=== PATIENT | female | born 1995 | race Caucasian/White ===

== ENCOUNTER 2020-11-20 00:01 | Inpatient (IN) ==
[2020-11-20] MEDS ORDERED: MISOPROSTOL 100 MCG TABLET VG PRN (00:03)
[2020-11-20] MEDS ORDERED: OXYTOCIN/0.9 % SODIUM CHLORIDE 30 UNITS/500 ML BAG IV ONE ×2 (00:03→11:41)
[2020-11-20] MEDS ORDERED: ONDANSETRON 4 MG TAB.RAPDIS PO PRN (00:03)
[2020-11-20] MEDS ORDERED: RINGER'S SOLUTION,LACTATED 1,000 ML IV ONE (00:03)
[2020-11-20] MEDS ORDERED: LIDOCAINE HCL 50 ML VIAL PERI PRN (00:03)
[2020-11-20] MEDS ORDERED: BUTORPHANOL TARTRATE 2 MG/ML VIAL IV PRN (00:03)
[2020-11-20 00:44] LABS: Cocaine Ur Negative (NEGATIVE); Urine Barbiturate Negative (NEGATIVE); Urine Benzodiazepines Negative (NEGATIVE); Urine PCP Negative (NEGATIVE); Urine THC Negative (NEGATIVE)
[2020-11-20] MEDS: RINGER'S SOLUTION,LACTATED 1,000 ML IV PRN ×2 (00:49→06:38)
[2020-11-20 00:54] LABS: Urine Opiates Positive (NEGATIVE)
[2020-11-20] MEDS: BUTORPHANOL TARTRATE 2 MG/ML VIAL IV PRN ×2 (02:59→05:31)
[2020-11-20] MEDS ORDERED: ONDANSETRON HCL/PF 2 MG/ML VIAL IV PRN (05:52)
[2020-11-20] MEDS ORDERED: BUPIVACAINE HCL/0.9 % NACL/PF 250 ML EP PRN (05:52)
[2020-11-20] MEDS ORDERED: NALOXONE HCL 1 MG/1 ML SYRG IV PRN (05:52)
[2020-11-20] MEDS ORDERED: fentaNYL CITRATE/PF 50 MCG/ML AMPUL IT SCH (06:00)
--- NOTE | 2020-11-20 07:13 | ANES ---
Anesthesia Pre Procedure Eval Vitals/Labs: Last Vital Signs Temp 36.6 C 11/20/20 00:24 Pulse 116 H 11/20/20 00:24 Resp 18 11/20/20 00:24 BP 137/86 11/20/20 00:24 Pulse Ox 97 11/20/20 00:24 HOME MEDICATIONS cyclobenzaprine 10 mg tablet 10 mg PO BID PRN #10 tab 10/05/20 [Last Taken 11/18/20 21:00] Allergies/Adverse Reactions: Allergies Allergy/AdvReac Type Severity Reaction Status Date / Time No Known Allergies Allergy Verified 11/20/20 00:03 - Planned Procedure Planned Procedure: elective induction Medication List Reviewed:: Yes Allergies Verified: Yes Medical History (Last Reviewed 11/20/20 @ 06:36 by Rocky Houser CRNA) Asthma Chronic bronchitis Surgical History (Last Reviewed 11/20/20 @ 06:36 by Rocky Houser CRNA) No pertinent past surgical history Family History (Last Reviewed 11/20/20 @ 06:37 by Rocky Houser CRNA) Grandfather Heart disease Other Cancer - Family Anesthesia History Family History:: no untoward family reactions to anesthesia, no familial bleeding tendencies, no family history of clotting disorders, no family history of premature - Airway/Neck/Teeth Within Normal Limits:: Yes Teeth Condition: intact Mallampatti Score: 2 Thyromental (T-M) distance: > 6 cm Mandibulo Hyoid distance: > 3 cm - Respiratory Respiratory Physical: rhonchi Sleep Apnea currently treated: No Sleep Apnea by current assessment: No - Cardiovascular Tolerate Activity: Fair Heart Sounds: S1 & S2, Regular - Gastrointestinal NPO since: 2399 - Anesthesia Assessment and Plan ASA Class: PS, III, E Anesthesia Type Plan: Epidural - CSE for labor analgesia
--- NOTE | 2020-11-20 07:14 | ANES ---
Post Anesthesia Discharge - Transfer of Care Transfer of Care handoff given to nurse: Yes - Discharge from PACU Discharge from PACU when meets criteria: Yes - Comfortable post CSE.
--- NOTE | 2020-11-20 07:19 | ANES ---
Anesthesia Procedure Note Procedure Note: ANESTHESIA PROCEDURE NOTE Date of Procedure: 11/20/2020 Time of procedure: 6:35 AM. Performed by: SHANNON Marcum CRNA, MSN Hire Car Driver: Donna Villanueva RN. Preprocedure diagnosis: Active labor, labor pain. Post procedure diagnosis: Same. Procedure:Epidural for labor analgesia L3-4. Indications: Labor pain. Findings: See below. Details of the procedure: The patient was placed on the side of the bed in sitting positionand prepped with DuraPrep then draped in a sterile fashion. Lidocaine 1% was infiltrated to the skin and subcutaneous tissues at the level of the L3-4 interspace. An 18-gauge Touhy needle was used to approach the epidural space with loss of resistance technique. There was some difficulty finding the epidural space, the target was more left lateral and would be expected by visualization. Once loss of resistance was achieved a 27-gauge spinal needle was passed through the epidural needle and CSF was contacted. After CSF returned, 20 mcg of fentanyl was injected in the spinal needle was removed the epidural catheter was then threaded approximately 4 cm in the epidural needle was removed. The catheter was taped in place and after careful aspiration 3 mL of 1.5% lidocaine with 1-200,000 epinephrine was injected without change in maternal heart rate or sensorium. . EBL: Minimal. Fluids: N/A. Specimen: N/A. Post procedure condition: The patient tolerated the procedure well with good relief. No complications were noted. Thank you for this consultation. Rocky Houser CRNA, ARNP, MSN
--- NOTE | 2020-11-20 07:26 | ANES ---
Post Anesthesia Assessment - Vital Signs Vitals: Last Vital Signs Temp 36.6 C 11/20/20 00:24 Pulse 116 H 11/20/20 00:24 Resp 18 11/20/20 00:24 BP 137/86 11/20/20 00:24 Pulse Ox 97 11/20/20 00:24 Airway Patency: Normal - Mental Status Level Of Consciousness: Awake, Alert, Appropriate - Pain Level Pain Score: 0 - N/V Assessment Nausea/Vomiting Presence: None Dehydration:: No
--- NOTE | 2020-11-20 07:39 | HP ---
Chief Complaint - Chief Complaint Date of Service: 11/20/20 Time of Service: 07:25 Chief Complaint: elective induction History of Present Illness: 25 year old at 39w 0d who presented to L&D for an elective IOL. She reports regular ctx on pitocin. She denies LOF or VB. Fetus is active. Medical History (Last Reviewed 11/20/20 @ 07:33 by Billie Elkins MD) Asthma Chronic bronchitis Surgical History: Surgical History (Last Reviewed 11/20/20 @ 07:33 by Billie Elkins MD) No pertinent past surgical history Family History: Family History (Last Reviewed 11/20/20 @ 07:33 by Billie Elkins MD) Grandfather Heart disease Other Cancer Social History: (Last Reviewed 11/20/20 @ 07:33 by Billie Elkins MD) Social History: adopted: No Marital status: Single current occupational status: unemployed current occupational exposures/hazards: No Highest level of school completed/degree received: 9th grade Service: No Tobacco: Smoking Status: Former smoker Alcohol: alcohol intake: never details: none since +UPT Substance Use: substance use type: does not use Dietary Habits: caffeine: No Personal Safety: do you feel safe at home: Yes victim of physical abuse: No victim of emotional abuse: No victim of sexual abuse: No Review Of Systems (GEN) - Review of Systems Generalized/Overall Review: Present: No Symptoms Reported EENTM: Present: No Symptoms Reported Misc: All systems neg except as marked Immunizations: IMMUNIZATION HX Immunizations Up to Date Yes History of Influenza Vaccine No Hx Pneumococcal Vaccination No Allergies/Adverse Reactions: Allergies Allergy/AdvReac Type Severity Reaction Status Date / Time No Known Allergies Allergy Verified 11/20/20 00:03 Home Medications: HOME MEDICATIONS cyclobenzaprine 10 mg tablet 10 mg PO BID PRN #10 tab 10/05/20 [Last Taken 11/18/20 21:00] Exam - Exam Vital Signs: Vital Signs - Last Taken Temp 36.6 C 11/20/20 00:24 Pulse 116 H 11/20/20 00:24 Resp 18 11/20/20 00:24 BP 137/86 11/20/20 00:24 Pulse Ox 97 11/20/20 00:24 Constitutional: Present: Alert, Oriented x3, Cooperative, No distress ENT Exam: Present: hearing grossly normal Eye Exam: bilateral eye: normal inspection Neck: Present: normal inspection Back Exam: Present: normal inspection Breasts: Present: Exam deferred Respiratory: Present: lungs clear, normal breath sounds Cardiovascular/Chest: Present: regular rate, rhythm Abdomen: Present: soft, nontender, nondistended /Rectal: Present: Other - 4/50/-2 AROM for a moderate amount of clear fluid Extremity: Present: non-tender, no calf tenderness Skin Exam: Present: normal color, warm/dry, no cyanosis Neurologic: Present: alert, normal mood/affect, oriented x 3 Appearance: Present: appropriate appearance, appropriate insight, neat, no memory impairment Eye contact: Present: cooperative, good eye contact, normal speech Thoughts: Present: normal thought pattern Diagnostic Studies: Abnormal Lab Results 11/20/20 Range/Units 00:01 Urine Opiates Screen Positive H (NEGATIVE) Laboratory Results Urine Opiates Screen Positive (NEGATIVE) H 11/20/20 00:01 Barbiturate Screen Negative (NEGATIVE) 11/20/20 00:01 Ur Phencyclidine Scrn Negative (NEGATIVE) 11/20/20 00:01 Urine Amphetamine Negative (NEGATIVE) 11/20/20 00:01 U Benzodiazepines Scrn Negative (NEGATIVE) 11/20/20 00:01 Urine Cocaine Screen Negative (NEGATIVE) 11/20/20 00:01 Urine Marijuana (THC) Negative (NEGATIVE) 11/20/20 00:01 Blood Type O Positive 11/20/20 00:15 Antibody Screen Negative 11/20/20 00:15 Assessment/Plan - Narrative Narrative: 25 year old at 39w 0d 1. Elective IOL: On pitocin, AROM done for augmentation 2. Opiate use disorder: UDS positive on admission to L&D 3. GBS negative: prophylaxis not indicated - Assessment/Plan (1) Elective induction of labor planned Problem: Acute (2) 39 weeks gestation of Problem: Acute (3) Opiate use Problem: Acute (4) Rh(D) positive Problem: Acute (5) Anemia Problem: Acute Qualifiers: Anemia type: iron deficiency Iron deficiency anemia type: other iron deficiency Qualified Code(s): D50.8 - Other iron deficiency anemias (6) LGSIL (low grade squamous intraepithelial dysplasia) Problem: Acute (7) History of marijuana use Problem: Acute
--- NOTE | 2020-11-20 11:24 | OR ---
Operative Report - Dictated Report Narrative: Date of delivery: 11/21/20 Time of delivery: 1150 Gender: female weight: 2602 grams APGARS: 8/9 Procedure: Description of the procedure: The patient is a 25 year old at 39w 0d who presented for an elective IOL. She received pitocin followed by AROM. She p rogressed to complete dilation. The patient delivered a viable female infant in ERLIN presentation. The shoulders delivered without difficulty followed by the rest of the infant. Cord clamping was delayed for 30 seconds due to vigorous infant. The cord was clamped and cut. Cord blood was collected. The placenta delivered by expression and appeared intact. The cervix was visualized at the perineum. A 2 cm transverse superficial laceration of the anterior lip of the cervix was noted. Only the serosal area was noted to be affected. This was repaired with 3-0 rapide. EBL: 150 mL Lacerations: 2 cm transverse cervical laceration of the anterior lip of the cervix Complications: none Specimens: cord blood, cord gases, placenta History for Definition: * The number of deliveries resulting in a live the patient experienced prior to current hospitalization * The previous delivery of live twins or any live multiple gestation is considered one live event. *If primagravida or nulliparous is documented select zero for the number of previous live births. Live Events: 3
[2020-11-20] MEDS ORDERED: HYDROcodone/ACETAMINOPHEN 1 EACH TABLET PO PRN (11:41)
[2020-11-20] MEDS ORDERED: BENZOCAINE/MENTHOL 81 SPRAY CAN TP PRN (11:41)
[2020-11-20] MEDS ORDERED: HYDROCORTISONE 30 APPL TUBE TP PRN (11:41)
[2020-11-20] MEDS ORDERED: diphenhydrAMINE HCL 25 MG CAPSULE PO PRN (11:41)
[2020-11-20] MEDS ORDERED: GLYCERIN/WITCH HAZEL LEAF 40 APPL BOX TP PRN (11:41)
[2020-11-20] MEDS ORDERED: SENNOSIDES 8.6 MG TABLET PO PRN (11:41)
[2020-11-20] MEDS ORDERED: BISACODYL 10 MG SUPP.RECT RC PRN (11:41)
[2020-11-20] MEDS: HYDROcodone/ACETAMINOPHEN 1 EACH TABLET PO PRN ×3 (12:20→18:43)
[2020-11-20] MEDS: IBUPROFEN 800 MG TABLET PO PRN ×2 (12:21→18:43)
[2020-11-20] MEDS: DOCUSATE SODIUM 100 MG CAPSULE PO SCH (22:05)
[2020-11-20] MEDS: oxyCODONE HCL/ACETAMINOPHEN 1 TAB TABLET PO PRN (22:05)
[2020-11-21] MEDS: IBUPROFEN 800 MG TABLET PO PRN ×4 (01:17→21:57)
[2020-11-21] MEDS: oxyCODONE HCL/ACETAMINOPHEN 1 TAB TABLET PO PRN ×7 (01:18→23:35)
[2020-11-21] MEDS: DOCUSATE SODIUM 100 MG CAPSULE PO SCH ×3 (07:21→21:56)
--- NOTE | 2020-11-21 07:28 | PN ---
Subjective - Date and Time Seen Date: 11/21/20 Time: 07:26 Subjective Narrative: Patient without complaints. Bleeding is normal Objective Objective Narrative: See vital signs - Review of Systems Generalized/Overall Review: Reports: No Symptoms Reported Misc: All systems neg except as marked - Vitals Vitals: Last Vital Signs Temp 36.4 C 11/21/20 06:30 Pulse 84 11/21/20 06:30 Resp 20 11/21/20 06:30 BP 114/70 11/21/20 06:30 Pulse Ox 98 11/21/20 06:30 - Exam Constitutional: Present: Alert, Oriented x3, Cooperative, No distress ENT Exam: Present: hearing grossly normal Neck: Present: normal inspection Abdomen: Present: soft, nontender, nondistended - fundus is firm Extremity: Present: non-tender, no calf tenderness Skin Exam: Present: normal color, warm/dry, no cyanosis Neurologic: Present: alert, normal mood/affect, oriented x 3 Appearance: Present: appropriate appearance, appropriate insight, neat, no memory impairment Eye contact: Present: cooperative, good eye contact, normal speech Thoughts: Present: normal thought pattern Cauti Physician Documentation - Urinary Catheter Management Urethral ([place]) Urethral Indwelling: No Date of Insertion: 11/20/20 Time of Insertion: 07:40 Date of Removal: 11/20/20 Time of Removal: 10:50 Assessment/Plan Plan Narrative: PPD 1 s/p Doing well Discharge tomorrow - Problems/Diagnosis (1) Elective induction of labor planned Problem: Acute (2) 39 weeks gestation of Problem: Acute (3) Opiate use Problem: Acute (4) Rh(D) positive Problem: Acute (5) Anemia Problem: Acute Qualifiers: Anemia type: iron deficiency Iron deficiency anemia type: other iron deficiency Qualified Code(s): D50.8 - Other iron deficiency anemias (6) LGSIL (low grade squamous intraepithelial dysplasia) Problem: Acute (7) History of marijuana use Problem: Acute
[2020-11-21] MEDS ORDERED: MEDROXYPROGESTERONE ACET 150 MG/ML SYRG IM ONE ×2 (08:00→17:35)
[2020-11-22] MEDS: oxyCODONE HCL/ACETAMINOPHEN 1 TAB TABLET PO PRN (02:54)
[2020-11-22] MEDS: IBUPROFEN 800 MG TABLET PO PRN ×2 (05:32→11:36)
[2020-11-22 07:40] VITALS: BP 114/57
[2020-11-22] MEDS: DOCUSATE SODIUM 100 MG CAPSULE PO SCH (09:53)
--- NOTE | 2020-11-22 11:37 | PN ---
Subjective - Date and Time Seen Date: 11/22/20 Time: 11:35 Subjective Narrative: Patient without complaints. Bleeding is normal Objective Objective Narrative: See vital signs - Review of Systems Generalized/Overall Review: Reports: No Symptoms Reported Misc: All systems neg except as marked - Vitals Vitals: Last Vital Signs Temp 36.5 C 11/22/20 07:39 Pulse 98 11/22/20 07:39 Resp 16 11/22/20 07:39 BP 114/57 11/22/20 07:39 Pulse Ox 98 11/22/20 07:39 - Exam Constitutional: Present: Alert, Oriented x3, Cooperative, No distress Abdomen: Present: soft, nontender, nondistended - fundus is firm Extremity: Present: non-tender, no calf tenderness Skin Exam: Present: normal color, warm/dry, no cyanosis Neurologic: Present: alert, normal mood/affect, oriented x 3 Appearance: Present: appropriate appearance, appropriate insight, neat, no memory impairment Eye contact: Present: cooperative, good eye contact, normal speech Thoughts: Present: normal thought pattern Cauti Physician Documentation - Urinary Catheter Management Urethral ([place]) Urethral Indwelling: No Date of Insertion: 11/20/20 Time of Insertion: 07:40 Date of Removal: 11/20/20 Time of Removal: 10:50 Assessment/Plan Plan Narrative: PPD 2 s/p Doing well Discharge home - Problems/Diagnosis (1) Elective induction of labor planned Problem: Acute (2) 39 weeks gestation of Problem: Acute (3) Opiate use Problem: Acute (4) Rh(D) positive Problem: Acute (5) Anemia Problem: Acute Qualifiers: Anemia type: iron deficiency Iron deficiency anemia type: other iron deficiency Qualified Code(s): D50.8 - Other iron deficiency anemias (6) LGSIL (low grade squamous intraepithelial dysplasia) Problem: Acute (7) History of marijuana use Problem: Acute
--- NOTE | 2020-11-23 08:11 | DS ---
OB Discharge Summary (1) Elective induction of labor planned Status: Acute (2) 39 weeks gestation of Status: Acute (3) Opiate use Status: Acute (4) Rh(D) positive Status: Acute (5) Anemia Status: Acute Qualifiers: Anemia type: iron deficiency Iron deficiency anemia type: other iron deficiency Qualified Code(s): D50.8 - Other iron deficiency anemias (6) LGSIL (low grade squamous intraepithelial dysplasia) Status: Acute (7) History of marijuana use Status: Acute Delivery Date: 11/20/20 Delivery Time: 10:49 :: 8 Para:: 5 Gestational weeks:: 39 Gestational days:: 0 Intrapartum Procedures: Spontaneous Vaginal Delivery, Anesthesia - Epidural Procedures: None /OP Complications: No Complications Discharge Diagnosis: Term -Delivered, Other - opiate use disorder - Discharge Information Date of Discharge: 11/23/20 Hospital Course: The patient presented for an elective IOL and delivered vaginally without complications. course was uncomplicated. Discharge Location: Home Disposition: Home self-care Condition: Stable Activity on Discharge:: Activity as tolerated, Pelvic Rest Discharge Diet: General/regular food Additional Patient Instructions (free text): Jennifer you have an appointment with Dr. Elkins on SundayJanuary 03 at 3:00PM Hiwot has an appointment with [facility] at 1:15 on November 24 Hiwot's weight today is 5lbs 9.9oz. Her blood type is O+. Her bili level at 41 hours of life is 7.6. She has passed her hearing screen, passed her CHD screen, and her metabolic screen has been drawn. Please contiune to feed Hiwot on demand or at least every 3-4 hours. Please always lay her on her back in her own sleeping space with no loose blankets or others objects in her sleeping space. Thank you for choosing [facility] for your special delivery. Please never hesitate to call if you have any questions or concerns. [facility] [phone] [facility] [phone] [facility] [phone] Prescriptions (Any new or edited meds): Ibuprofen [Motrin] 800 mg PO Q6H PRN #30 tab PRN Reason: Mild Pain (Pain Scale 1-3) Transmission Status: Received by [facility] #[id number] Complete Home Medications List: Complete Home Medication List: Ibuprofen [Motrin] 800 mg PO Q6H PRN #30 tab 11/22/20 - Plan Discharge to:: Home Comment:: Routine Discharge Instructions Follow up in office in:: Other - 4 weeks - Information Weight (Grams): 2,602 Infant Sex: Female Score 1 min: 8 Score 5 min: 9 Complications: None Other Complications: Maternal use of Opiates, UDS + on admission. Baby with tac hypnia initially, resolved.
== END 2020-11-22 12:30 | disposition home or self-care (01) | DRG 768 ==
LOC: OB 00:01
PROVIDERS: ADMIT Obstetrics & Gynecology; ATTEND Obstetrics & Gynecology